=== PATIENT | female | born 1950 | race Caucasian/White ===

== ENCOUNTER 2021-11-23 02:10 | Inpatient (IN) ==
[2021-11-23] MEDS ORDERED: Heparin DRIP 25,000 UNITS BAG 25,000 UNITS/500 ML BAG IV SCH (02:30)
[2021-11-23] MEDS ORDERED: Heparin 5000 UNITS/ML 1 mL VIAL IV SCH (03:00)
[2021-11-23] MEDS ORDERED: Metoprolol Tartrate 5 mg VIAL 5 ml VIAL (1 mg/ml) IV ONE ×3 (03:11→07:14)
[2021-11-23] MEDS ORDERED: nitroGLYCERIN DRIP 25,000 MCG in Premix IV 0 ML IV ONE (03:45)
[2021-11-23 03:46] LABS: ABS Lymphocytes 0.7 10^3/ul (1.0-4.8); ABS Monocytes 0.4 10^3/ul (0-0.8); ABS Neutrophils 4.8 10^3/ul (1.5-7.7); Eosinophil % 0.3 %; Hematocrit 38 % (35-47); Hemoglobin 12.9 g/dL (12.0-16.0); Lymphocyte % 11.7 %; Mean Corpuscular HGB Conc 34 g/dL (31-36); Mean Corpuscular Hemoglobin 32 pg (27-31); Mean Corpuscular Volume 93 fL (80-97); Mean Platelet Volume 7.7 fL (7.4-10.4); Platelet Count 235 10^3/uL (150-450); Red Blood Count 4.04 10^6 /uL (3.70-4.87); Red Cell Distribution Width 13 % (10-15)
[2021-11-23] MEDS: nitroGLYCERIN DRIP 25,000 MCG/250 ML BTL IV SCH ×2 (03:56→07:19)
[2021-11-23 04:10] LABS: eGFR CKD-EPI 106.4 (>60)
[2021-11-23 06:25] LABS: High Sensitivity Troponin 1 Hr 629 pg/mL (<15)
[2021-11-23] MEDS ORDERED: Magnesium Sulfate 2 gm BAG 2 GM/50 ML BAG IVPB ONE (07:12)
[2021-11-23] MEDS ORDERED: NS 0.9% 500 ml BAG 500 ML IV ONE ×2 (07:13→22:46)
[2021-11-23] MEDS ORDERED: Carbidopa/Levodop CR 50/200 TAB.CR PO SCH (08:30)
[2021-11-23] MEDS ORDERED: Ondansetron 4 mg VIAL 2 MG/ML 2 ml VIAL ONE (08:48)
[2021-11-23] MEDS ORDERED: FLUTICAS/UMECLI/VILANT 100-62.5-25 MDI (NF) INH SCH (09:00)
[2021-11-23] MEDS ORDERED: Lidocaine 1% MPF 5 ML VIAL ONE (10:06)
[2021-11-23] MEDS ORDERED: Iohexol 350 (CONTRAST) 200 ML MDV IV ONE (10:09)
[2021-11-23] MEDS ORDERED: Heparin 1,000 UNIT/ML 10 ml (10,000 UNITS) CATHLAB/DIALYSIS ONE (10:09)
[2021-11-23] MEDS ORDERED: Heparin 2 UNITS/ML 1000 mls 2,000 ML IV ONE (10:09)
[2021-11-23] MEDS: Carbidopa/Levodop CR 50/200 TAB.CR PO SCH ×2 (12:04→14:58)
[2021-11-23] MEDS: Ondansetron 4 mg VIAL 2 MG/ML 2 ml VIAL IV PRN ×2 (14:41→18:25)
[2021-11-23] MEDS: CMCS:FLUTICAS/UMECLI/VILANT 100-62.5-25 MDI (NF) INH SCH (17:47)
[2021-11-23] MEDS ORDERED: Lactated Ringers 500 ml BAG 500 ML IV SCH ×2 (19:00→22:47)
[2021-11-23] MEDS ORDERED: LEVODOPA PO SCH (20:30)
[2021-11-23] MEDS ORDERED: CARBIDOPA PO SCH (20:30)
[2021-11-23] MEDS: Heparin 5000 UNITS/ML 1 mL VIAL SUBCUT SCH (20:42)
[2021-11-23] MEDS ORDERED: Polyethylene Glycol 3350 17 GM PACKET PO SCH (21:00)
[2021-11-23] MEDS ORDERED: Flumazenil 0.5 mg/5 ml 0.1 MG/ML 5 ml VIAL IV ONE (23:08)
[2021-11-23] MEDS ORDERED: Flumazenil 0.5 mg/5 ml 0.1 MG/ML 5 ml VIAL ONE (23:12)
[2021-11-23] MEDS ORDERED: PHENYLEPHRINE DRIP IVPREMIX 50 MG/250 ML BAG IV SCH (23:45)
[2021-11-23] MEDS ORDERED: PHENYLEPHRINE DRIP IVPREMIX 50 MG/250 ML BAG IV ONE (23:48)
[2021-11-24 04:47] LABS: ABS Lymphocytes 0.9 10^3/ul (1.0-4.8); ABS Monocytes 0.4 10^3/ul (0-0.8); ABS Neutrophils 2.9 10^3/ul (1.5-7.7); Eosinophil % 0.5 %; Hematocrit 37 % (35-47); Hemoglobin 12.6 g/dL (12.0-16.0); Lymphocyte % 21.4 %; Mean Corpuscular HGB Conc 34 g/dL (31-36); Mean Corpuscular Hemoglobin 32 pg (27-31); Mean Corpuscular Volume 93 fL (80-97); Mean Platelet Volume 7.6 fL (7.4-10.4); Nucleated Red Blood Cells % 0.1; Platelet Count 258 10^3/uL (150-450); Red Blood Count 3.99 10^6 /uL (3.70-4.87); Red Cell Distribution Width 13 % (10-15); White Blood Count 4.2 10^3/uL (3.5-10.8)
[2021-11-24 05:34] LABS: Calcium 8.3 mg/dL (8.6-10.3); Potassium 3.9 mmol/L (3.5-5.0); eGFR CKD-EPI 106.4 (>60)
[2021-11-24 05:47] LABS: TSH Ultra Thyroid Stim Horm 3.98 mcIU/mL (0.34-5.60)
[2021-11-24] MEDS ORDERED: Polyethylene Glycol 3350 17 GM PACKET PO PRN (08:16)
[2021-11-24] MEDS ORDERED: Magnesium Sulfate IV 1GM/100ML 1 GM/100 ML BAG IV ONE (08:23)
[2021-11-24] MEDS: Heparin 5000 UNITS/ML 1 mL VIAL SUBCUT SCH (09:05)
[2021-11-24] MEDS: CARBIDOPA PO SCH ×2 (09:58→11:59)
[2021-11-24] MEDS: LEVODOPA PO SCH ×2 (09:58→11:59)
[2021-11-24] MEDS: CMCS:FLUTICAS/UMECLI/VILANT 100-62.5-25 MDI (NF) INH SCH (10:07)
[2021-11-24] MEDS ORDERED: Lactated Ringers 1000 ml BAG 500 ML IV ONE (11:22)
[2021-11-24 15:00] VITALS: BP 127/87
== END 2021-11-24 13:00 | disposition home or self-care (01) | DRG 281 ==
LOC: ED 02:10 → ICU 05:22 → SUATTDRO 05:22 → ICU 06:30
PROVIDERS: ADMIT Internal Medicine; ATTEND Internal Medicine